=== PATIENT | male | born 1955 | race Caucasian/White ===

== ENCOUNTER 2023-10-12 06:21 | Day surgery (SDC) | payer MEDICARE, BC ==
[2023-10-12] MEDS ORDERED: Lactated Ringers 1,000 ML IV SCH (07:00)
[2023-10-12] MEDS ORDERED: fentaNYL 50 MCG/ML SDV ONE (07:43)
[2023-10-12] MEDS ORDERED: Propofol 200 MG/20 ML SDV ONE (07:43)
[2023-10-12] MEDS ORDERED: Midazolam 1 MG/ML 2 ML SDV ONE (07:43)
[2023-10-12] MEDS: Sodium Chloride 0.9% 1,000 ML IV SCH (07:50)
== END 2023-10-12 09:32 | disposition home or self-care (01) ==
LOC: JP.SDS 06:21
PROVIDERS: ATTEND Surgery
DX: Z12.11 Encounter for screening for malignant neoplasm of colon (principal); I12.9 Hypertensive chronic kidney disease with stage 1 through stage 4 chronic kidney disease, or unspecified chronic kidney disease; N18.9 Chronic kidney disease, unspecified; I25.10 Atherosclerotic heart disease of native coronary artery without angina pectoris
CPT/HCPCS: J2250; J2704; J3010; J7030